=== PATIENT | female | born 1935 | race Caucasian/White ===

== ENCOUNTER 2017-02-16 05:15 | Emergency (ER) | payer MEDICARE, OTHER ==
[2017-02-16] MEDS ORDERED: NORVASC 5MG5 MG/TAB PO (05:45)
[2017-02-16] MEDS ORDERED: VASOTEC10 M1 PO (05:45)
[2017-02-16] MEDS ORDERED: TOPROL XL 50MG50 MG PO (05:45)
[2017-02-16] MEDS ORDERED: COUMADIN 4MG4 MG/TAB PO (05:46)
[2017-02-16] MEDS ORDERED: COUMADIN 1MG1 MG/TAB PO (05:46)
[2017-02-16] MEDS ORDERED: LEVOTHYROXINE100 MC1 PO (05:46)
[2017-02-16] MEDS ORDERED: NATURE'S BOUNTY1 TAB PO (05:47)
[2017-02-16] MEDS ORDERED: CALCIUM 600600 MG PO (05:47)
[2017-02-16] MEDS ORDERED: KENALOG DENTAL P5 GM DT (05:48)
[2017-02-16] MEDS ORDERED: METRONIDAZOLE TP (05:48)
[2017-02-16] MEDS ORDERED: XANAX0.5 M1 PO (05:48)
[2017-02-16 06:07] LABS: HEMOGLOBIN 14.8 g/dL (12.5-16.0); MEAN CELL VOLUME 88 fl (78-100); MEAN CORPUSCULAR HEMOGLOBIN 31 pg (27-31); MEAN CORPUSCULAR HGB CONC 35 g/dL (33-37); MEAN PLATELET VOLUME 9.2 fl (7.4-10.4); PLATELET COUNT 241 K/mm3 (130-400); RED BLOOD COUNT 4.76 M/mm3 (4.10-5.30); RED CELL DISTRIBUTION WIDTH 13.2 % (11.5-14.5)
[2017-02-16 06:20] LABS: ALBUMIN 4.4 g/dL (3.5-5.0); BUN/CREATININE RATIO 16.4 (6.0-26.0); CALCIUM 9.8 mg/dL (8.4-10.2); POTASSIUM 3.6 mmol/L (3.6-5.0); TOTAL BILIRUBIN 0.8 mg/dL (0.2-1.3); TOTAL PROTEIN 7.5 g/dL (6.3-8.2)
[2017-02-16 06:23] LABS: NEUTROPHILS 81 % (42-75)
[2017-02-16 06:24] LABS: LYMPHOCYTE 16 % (20-51); MONOCYTE 3 % (3-10)
[2017-02-16 07:53] LABS: PROTHROMBIN TIME 18.8 SECONDS (9.0-12.0)
[2017-02-16 08:11] LABS: URINE APPEARANCE CLEAR; URINE BILIRUBIN NEGATIVE (NEGATIVE); URINE BLOOD NEGATIVE (NEGATIVE); URINE COLOR YELLOW; URINE GLUCOSE NEGATIVE (NEGATIVE); URINE KETONE NEGATIVE (NEGATIVE); URINE LEUKOCYTE ESTERASE NEGATIVE (NEGATIVE); URINE NITRATE NEGATIVE (NEGATIVE); URINE PROTEIN(semi-quant) TRACE mg/dL (NEGATIVE); URINE UROBILINOGEN NORMAL (NORMAL)
[2017-02-16] MEDS ORDERED: ZOFRAN ODT4 MG PO (08:38)
[2017-02-16 08:47] VITALS: BP 161/71
== END 2017-02-16 08:49 | disposition home or self-care (01) ==
LOC: ED 05:15
PROVIDERS: Nurse Practitioner Primary Care; Physician Assistant
DX: K52.9 Noninfective gastroenteritis and colitis, unspecified (principal); Z79.01 Long term (current) use of anticoagulants; I10 Essential (primary) hypertension; D68.51 Activated protein C resistance
CPT/HCPCS: J2405; J2550; J7030

== ENCOUNTER 2017-04-30 09:45 | Emergency (ER) | payer MEDICARE, OTHER ==
[~2017-04-30] VITALS: Ht 165.1 cm; Wt 81.8 kg
[~2017-04-30 09:45] MED LIST: CALCIUM 600600 MG PO; COUMADIN 1MG1 MG/TAB PO; COUMADIN 4MG4 MG/TAB PO; KENALOG DENTAL P5 GM DT; LEVOTHYROXINE100 MC1 PO; METRONIDAZOLE TP; NATURE'S BOUNTY1 TAB PO; NORVASC 5MG5 MG/TAB PO; TOPROL XL 50MG50 MG PO; VASOTEC10 M1 PO; XANAX0.5 M1 PO; ZOFRAN ODT4 MG PO
[2017-04-30] MEDS ORDERED: CARVEDILOL25 MG PO (10:06)
[2017-04-30] MEDS ORDERED: DIOVAN320 MG PO (10:06)
[2017-04-30 10:40] LABS: EOS # 0.3 (0.04-0.40); EOS % 6.7 % (1.0-5.0); HEMATOCRIT 43.6 % (37.0-47.0); HEMOGLOBIN 14.8 g/dL (12.5-16.0); LYMPH# 1.5 (1.50-4.00); MEAN CELL VOLUME 90 fl (78-100); MEAN CORPUSCULAR HEMOGLOBIN 31 pg (27-31); MEAN CORPUSCULAR HGB CONC 34 g/dL (33-37); MEAN PLATELET VOLUME 9.3 fl (7.4-10.4); MONO # 0.4 (0.20-0.80); NEU # 2.4 (1.40-6.50); PLATELET COUNT 217 K/mm3 (130-400); RED BLOOD COUNT 4.83 M/mm3 (4.10-5.30); RED CELL DISTRIBUTION WIDTH 13.6 % (11.5-14.5); WHITE BLOOD COUNT 4.6 K/mm3 (4.8-10.8)
[2017-04-30 10:45] LABS: BUN/CREATININE RATIO 16.4 (6.0-26.0); CALCIUM 9.9 mg/dL (8.4-10.2)
[2017-04-30 11:45] VITALS: BP 151/78
== END 2017-04-30 11:48 | disposition home or self-care (01) ==
LOC: ED 09:45
PROVIDERS: Family Medicine
DX: R04.0 Epistaxis (principal); I10 Essential (primary) hypertension; D68.51 Activated protein C resistance; Z79.01 Long term (current) use of anticoagulants; E89.0 Postprocedural hypothyroidism

== ENCOUNTER 2019-11-20 10:30 | Outpatient (RCR) | payer MEDICARE, OTHER ==
[~2019-11-20 10:30] MED LIST changes: +CARVEDILOL25 MG PO; +DIOVAN320 MG PO
== END 2019-11-20 11:00 | disposition still patient (30) ==
LOC: PT 10:30
DX: M25.511 Pain in right shoulder (principal)

== ENCOUNTER 2020-11-30 09:24 | Observation (INO) | payer MEDICARE, OTHER ==
[~2020-11-30] VITALS: Ht 165.1 cm; Wt 73.5 kg
[~2020-11-30 09:24] MED LIST changes: -CALCIUM 600600 MG PO; +NATURE'S BLEND500 M5 PO; -NATURE'S BOUNTY1 TAB PO; +VITAMIN D31250 MC1 PO
[2020-11-30] MEDS ORDERED: WARFARIN SODIUM3 MG PO (09:31)
[2020-11-30] MEDS ORDERED: VASOTEC 10M10 MG/TAB PO (09:50)
[2020-11-30] MEDS ORDERED: LORAZEPAM0.5 M1 PO (09:51)
[2020-11-30] MEDS ORDERED: METOPROLOL SUCC50 M1 PO (09:51)
[2020-11-30] MEDS ORDERED: AMLODIPINE BESYL5 MG PO (09:51)
[2020-11-30 10:05] LABS: BASO # 0.04 (0.02-0.10); EOS # 0.15 (0.04-0.40); EOS % 1.5 % (1.0-5.0); HEMATOCRIT 44.3 % (37.0-47.0); HEMOGLOBIN 14.6 g/dL (12.5-16.0); LYMPH# 1.67 (1.50-4.00); MEAN CELL VOLUME 88 fl (78-100); MEAN CORPUSCULAR HEMOGLOBIN 29 pg (27-31); MEAN CORPUSCULAR HGB CONC 33 g/dL (33-37); MEAN PLATELET VOLUME 9.4 fl (7.4-10.4); MONO # 0.56 (0.20-0.80); NEU # 7.46 (1.40-6.50); PLATELET COUNT 287 K/mm3 (130-400); RED BLOOD COUNT 5.05 M/mm3 (4.10-5.30); RED CELL DISTRIBUTION WIDTH 13.6 % (11.5-14.5); WHITE BLOOD COUNT 9.9 K/mm3 (4.8-10.8)
[2020-11-30 10:07] LABS: ALBUMIN 4.4 g/dL (3.4-4.8)
[2020-11-30 10:08] LABS: POTASSIUM 3.3 mmol/L (3.5-5.1)
[2020-11-30 10:10] LABS: TOTAL PROTEIN 7.7 g/dL (6.2-8.1)
[2020-11-30 10:12] LABS: TOTAL BILIRUBIN 0.6 mg/dL (0.2-1.2)
[2020-11-30 10:27] LABS: PROTHROMBIN TIME 23.7 SECONDS (9.0-12.0)
[2020-11-30 14:32] VITALS: BP 156/77
[2020-11-30 17:10] VITALS: BP 128/75
[2020-11-30 19:16] LABS: HEMATOCRIT 36.9 % (37.0-47.0); HEMOGLOBIN 12.3 g/dL (12.5-16.0)
[2020-11-30] MEDS ORDERED: JANTOVEN4 MG PO (21:20)
[2020-11-30 22:19] VITALS: BP 128/69
[2020-12-01 01:51] VITALS: BP 130/69
[2020-12-01 02:07] LABS: HEMOGLOBIN 11.3 g/dL (12.5-16.0)
[2020-12-01 02:14] LABS: ALBUMIN 3.5 g/dL (3.4-4.8); POTASSIUM 3.6 mmol/L (3.5-5.1)
[2020-12-01 02:15] LABS: CALCIUM 9.4 mg/dL (8.3-10.5)
[2020-12-01 02:18] LABS: TOTAL BILIRUBIN 0.6 mg/dL (0.2-1.2)
[2020-12-01 06:04] VITALS: BP 132/54
[2020-12-01 06:42] LABS: HEMATOCRIT 34.3 % (37.0-47.0); HEMOGLOBIN 11.1 g/dL (12.5-16.0)
[2020-12-01 07:00] LABS: ALBUMIN 3.5 g/dL (3.4-4.8); POTASSIUM 4.1 mmol/L (3.5-5.1)
[2020-12-01 07:01] LABS: CALCIUM 9.3 mg/dL (8.3-10.5)
[2020-12-01 07:04] LABS: TOTAL BILIRUBIN 0.5 mg/dL (0.2-1.2)
== END 2020-12-01 09:06 | disposition other institution (70) ==
LOC: ED 09:24 → MED/SURG 12:36
PROVIDERS: ADMIT Nurse Practitioner
DX: K62.5 Hemorrhage of anus and rectum (principal); I10 Essential (primary) hypertension; E03.9 Hypothyroidism, unspecified; R11.0 Nausea; Z90.49 Acquired absence of other specified parts of digestive tract; Z79.01 Long term (current) use of anticoagulants; Z79.890 Hormone replacement therapy; Z79.899 Other long term (current) drug therapy
CPT/HCPCS: C9113; G0378; J2405; J7030

== ENCOUNTER 2020-12-01 09:06 | Inpatient (IN) | payer MEDICARE, OTHER ==
[~2020-12-01] VITALS: Ht 165.1 cm; Wt 73.5 kg
[~2020-12-01 09:06] MED LIST changes: +AMLODIPINE BESYL5 MG PO; +JANTOVEN4 MG PO; +LORAZEPAM0.5 M1 PO; +METOPROLOL SUCC50 M1 PO; +VASOTEC 10M10 MG/TAB PO; +WARFARIN SODIUM3 MG PO
[2020-12-01 10:00] VITALS: BP 130/71
[2020-12-01 14:10] VITALS: BP 127/70
[2020-12-01 17:51] VITALS: BP 155/70
[2020-12-01 21:53] VITALS: BP 124/73
[2020-12-02 02:05] VITALS: BP 118/63
[2020-12-02 05:34] VITALS: BP 147/74
[2020-12-02 07:01] LABS: BASO # 0.04 K/mm3 (0.02-0.10); EOS # 0.16 K/mm3 (0.04-0.40); EOS % 3.2 % (1.0-5.0); HEMATOCRIT 31.7 % (37.0-47.0); HEMOGLOBIN 10.3 g/dL (12.5-16.0); LYMPH# 1.85 K/mm3 (1.50-4.00); MEAN CELL VOLUME 90 fl (78-100); MEAN CORPUSCULAR HEMOGLOBIN 29 pg (27-31); MEAN CORPUSCULAR HGB CONC 33 g/dL (33-37); MEAN PLATELET VOLUME 9.4 fl (7.4-10.4); MONO # 0.42 K/mm3 (0.20-0.80); NEU # 2.56 K/mm3 (1.40-6.50); PLATELET COUNT 223 K/mm3 (130-400); RED BLOOD COUNT 3.51 M/mm3 (4.10-5.30); RED CELL DISTRIBUTION WIDTH 14.1 % (11.5-14.5)
[2020-12-02 07:54] LABS: ALBUMIN 3.2 g/dL (3.4-4.8); POTASSIUM 3.9 mmol/L (3.5-5.1)
[2020-12-02 07:55] LABS: CALCIUM 9.1 mg/dL (8.3-10.5)
[2020-12-02 07:56] LABS: TOTAL PROTEIN 5.4 g/dL (6.2-8.1)
[2020-12-02 07:58] LABS: TOTAL BILIRUBIN 0.4 mg/dL (0.2-1.2)
[2020-12-02 09:32] VITALS: BP 147/83
[2020-12-02 13:36] VITALS: BP 135/77
[2020-12-02 17:26] VITALS: BP 145/79
[2020-12-02 22:10] VITALS: BP 159/79
[2020-12-03 02:14] VITALS: BP 140/66
[2020-12-03 05:36] VITALS: BP 162/75
[2020-12-03 06:48] LABS: BASO # 0.05 K/mm3 (0.02-0.10); EOS # 0.23 K/mm3 (0.04-0.40); EOS % 3.7 % (1.0-5.0); HEMATOCRIT 33.9 % (37.0-47.0); HEMOGLOBIN 11.1 g/dL (12.5-16.0); LYMPH# 1.69 K/mm3 (1.50-4.00); MEAN CELL VOLUME 89 fl (78-100); MEAN CORPUSCULAR HEMOGLOBIN 29 pg (27-31); MEAN CORPUSCULAR HGB CONC 33 g/dL (33-37); MEAN PLATELET VOLUME 9.2 fl (7.4-10.4); MONO # 0.47 K/mm3 (0.20-0.80); NEU # 3.76 K/mm3 (1.40-6.50); PLATELET COUNT 249 K/mm3 (130-400); RED BLOOD COUNT 3.81 M/mm3 (4.10-5.30); WHITE BLOOD COUNT 6.2 K/mm3 (4.8-10.8)
[2020-12-03 07:02] LABS: ALBUMIN 3.7 g/dL (3.4-4.8); POTASSIUM 3.8 mmol/L (3.5-5.1); PROTHROMBIN TIME 19.3 SECONDS (9.0-12.0)
[2020-12-03 07:04] LABS: CALCIUM 9.7 mg/dL (8.3-10.5)
[2020-12-03 07:05] LABS: TOTAL PROTEIN 6.2 g/dL (6.2-8.1)
[2020-12-03 07:07] LABS: TOTAL BILIRUBIN 0.4 mg/dL (0.2-1.2)
[2020-12-03 09:20] VITALS: BP 155/69
[2020-12-03 14:31] VITALS: BP 135/74
== END 2020-12-03 14:20 | disposition home or self-care (01) | DRG 377 ==
LOC: MED/SURG 09:06
PROVIDERS: ADMIT Nurse Practitioner
PROC: 0DJ08ZZ Inspection of Upper Intestinal Tract, Via Natural or Artificial Opening Endoscopic (ICD-10-PCS; principal; 2020-12-03)
PROC: 0DJD8ZZ Inspection of Lower Intestinal Tract, Via Natural or Artificial Opening Endoscopic (ICD-10-PCS; 2020-12-03)
DX: K57.31 Diverticulosis of large intestine without perforation or abscess with bleeding (principal); K21.01 Gastro-esophageal reflux disease with esophagitis, with bleeding; D68.51 Activated protein C resistance; D12.5 Benign neoplasm of sigmoid colon; D50.0 Iron deficiency anemia secondary to blood loss (chronic); I10 Essential (primary) hypertension; E03.9 Hypothyroidism, unspecified; Z90.49 Acquired absence of other specified parts of digestive tract; Z70.1 Counseling related to patient's sexual behavior and orientation
CPT/HCPCS: 00813; C9113; J1650; J2405; J2704; J7030; J7120; Q9967